=== PATIENT | female | born 1970 | race Caucasian/White ===

== ENCOUNTER 2020-01-01 10:57 | Outpatient (CLI) | payer OTHER, SELFPAY ==
[2020-01-04 00:11] LABS: Alpha-1-Antitrypsin, QN 132 mg/dL (83-199)
== END 2020-01-01 10:58 | disposition home or self-care (01) ==
PROVIDERS: PCP Nurse Practitioner; Visit Provider Nurse Practitioner Family
DX: J44.9 Chronic obstructive pulmonary disease, unspecified (principal); J45.909 Unspecified asthma, uncomplicated
CPT/HCPCS: 36415; 82103; 82104; 82785; 86003

== ENCOUNTER 2020-01-16 09:20 | Outpatient (CLI) | payer OTHER, SELFPAY | END 2020-01-16 09:21 | disposition home or self-care (01) | LOC: ANHAUDIO 09:22 | PROVIDERS: PCP Nurse Practitioner; Visit Provider Nurse Practitioner | DX: H90.3 Sensorineural hearing loss, bilateral (principal) | CPT/HCPCS: 92557; 92567 ==

== ENCOUNTER 2020-02-20 12:26 | Outpatient (CLI) | payer OTHER, SELFPAY ==
--- NOTE | 2020-02-26 09:34 | WPDPFTINT ---
PFT Interpretation PFT Interpretation: This PFT met all criteria for ATS standards and reproducibility FEV/FVC post bronchodilator 73% of predicted FEV1 95% or 2.37 liters FVC 98% or 3.23 ltiers There was good improvement in post bronchodilator FVC by 460 ml and 17% TLC 113% RV 159% RV/TLC 50% DLCO 75% when adjusted for alveolar volume but not adjusted for hemoglobin Flow volume loops showed some expiratory coving Impression: Mild airlfow obstruction with good response to bronchodilators. Air trapping and mildly reduced diffusion capacity. This corresponds with Asthma and or COPD or combination of both. Clinical correlation is advised.
--- NOTE | 2020-02-26 09:38 | WPDSIXMINUTE ---
Six Minute Walk Six Minute Walk: The patients O2 sats started at 97% and dropped as low as 95% Total walk distance 365.76 meters conclusion: This patient does not qualify for home oxygen use
== END 2020-02-20 12:27 | disposition home or self-care (01) ==
LOC: ANHPFT 12:27
PROVIDERS: PCP Nurse Practitioner; Visit Provider Nurse Practitioner Family
DX: J44.9 Chronic obstructive pulmonary disease, unspecified (principal)
CPT/HCPCS: 94060; 94618; 94726; 94729; 95012

== ENCOUNTER 2021-09-03 06:23 | Emergency (ER) | payer OTHER, SELFPAY ==
[2021-09-03] VITALS (17 sets, daily range): BP systolic 116–135; BP diastolic 74–87; PULSE 67–84; RESP 14–31; TEMP 36.8; O2SAT 96–100
[2021-09-03 06:38] LABS: Glucose Point of Care 261 mg/dl (65-105)
[2021-09-03 06:48] LABS: Basophils Percent Auto 0.4 % (0.2-1.2); Eosinophils Absolute Auto 0.1 K/mm3 (0-0.3); Eosinophils Percent Auto 1.5 % (0-4.4); Hematocrit 46.9 % (37.0-47.0); Hemoglobin 15.4 g/dL (12.0-15.0); Immature Granulocyte Absolute 0.02 K/mm3 (0.00-0.031); Immature Granulocyte Percent A 0.2 % (0-0.5); Lymphocytes Absolute Auto 2.84 K/mm3 (0.9-3.2); Lymphocytes Percent Auto 35.3 % (18.3-44.2); Mean Corpuscular HGB Conc 32.8 g/dl (32-36); Mean Corpuscular Volume 97.3 fl (80-100); Mean Platelet Volume 10.3 fl (7.4-10.4); Monocytes Absolute Auto 0.5 K/mm3 (0.1-0.6); Monocytes Percent Auto 5.6 % (2.6-8.5); Neutrophils Absolute Auto 4.6 K/mm3 (1.3-6.7); Platelet Count Result 222 k/mm3 (150-375); Red Blood Count 4.82 M/mm3 (4.2-5.4); Red Cell Distribution Width 12.3 % (11.5-14.5); White Blood Count 8.1 K/mm3 (4.5-10.0)
[2021-09-03 06:57] LABS: Lactic Acid Reflex 2.1 mmol/L (0.7-2.1)
[2021-09-03 06:58] LABS: Alanine Aminotransferase 35 U/L (4-35); Albumin Level 4.5 g/dL (3.5-5.1); Alkaline Phosphatase 102 U/L (38-126); Anion Gap 10 mmol/L (8-16); Aspartate Amino Transferase 30 U/L (14-36); Bilirubin,Total 0.2 mg/dL (0.2-1.3); Blood Urea Nitrogen 7 mg/dL (7-17); Calcium 8.8 mg/dL (8.4-10.2); Carbon Dioxide 22 mmol/L (22-30); Chloride 107 mmol/L (98-107); Estimated CRCL calculation 112 ml/min; Estimated Glomerular Filt Rate > 60; Glucose 259 mg/dL (65-110); Sodium 139 mmol/L (137-145)
--- NOTE | 2021-09-03 07:09 | ED.RECABL ---
HPI - Recheck/Abnormal Lab/Rx General Chief Complaint: Recheck/Abnormal Lab/Rx Stated Complaint: shaking, elevated blood sugar Time Seen by Provider: 09/03/21 07:02 Source: RN notes reviewed History of Present Illness HPI narrative: Patient presents emergency department from home for hyperglycemia. Patient states over the past 2 weeks her blood sugars have been running higher than normal range in the upper 200s over 300 she states normally she runs in the upper 100s to low 200s. Patient states she does have diabetes mellitus is on Metformin 1000 mg twice a day and did take her medication this morning. She states that when her blood sugars get high she feels shaky she also states she is been having increased urination and having intermittent diarrhea. She denies any fevers or chills chest pain shortness of breath abdominal pain nausea vomiting or any other symptoms. States she has been taking her medications as prescribed Related Data Home Medications Medication Instructions Recorded Confirmed acarbose mg 09/03/21 albuterol sulfate INHALATION 09/03/21 aripiprazole mg 09/03/21 ascorbic acid (vitamin C) [Vitamin 09/03/21 C] atorvastatin 09/03/21 bupropion HCl mg PO 09/03/21 clopidogrel 09/03/21 gabapentin 09/03/21 glipizide mg 09/03/21 lisinopril 09/03/21 metformin mg 09/03/21 methenamine hippurate g 09/03/21 montelukast mg 09/03/21 oxybutynin chloride mg PO 09/03/21 pantoprazole PO 09/03/21 topiramate 09/03/21 venlafaxine mg PO 09/03/21 Allergies Allergy/AdvReac Type Severity Reaction Status Date / Time aloe vera Allergy Severe Rash Verified 09/03/21 06:45 aspirin Allergy Severe Anaphylactic Verified 09/03/21 06:45 Shock ibuprofen Allergy Severe Anaphylactic Verified 09/03/21 06:45 Shock Review of Systems Review of Systems: Gen.: Denies fevers or chills ENT: Denies congestion Respiratory: Denies shortness of breath or cough CV: Denies chest pain or palpitations GI: Denies abdominal pain nausea, emesis reports diarrhea ports frequent urination Musculoskeletal: Denies back pain or muscle pain Neuro: Denies numbness, tingling, weakness or focal weakness Skin: Denies rash Endocrine: See HPI Except as documented, all other systems reviewed and negative [facility] Past Medical History Medical History (Updated 09/03/21 @ 09:56 by Giovanni Lazar DO) Anxiety Asthma Chronic fatigue COPD (chronic obstructive pulmonary disease) Depression Diabetes Fibrocystic breast disease (FCBD) Hyperlipemia Hypertension Mixed incontinence urge and stress (male)(female) Mood disorder TIA (transient ischemic attack) Vitamin deficiency Surgical History Surgical History (System 03/23/20 @ 15:53 by Sunni Hickey) Incontinence Family History Family History (System 03/23/20 @ 15:53 by Sunni Hickey) Father Heart disease Hypertension Mother Depression Hypertension High cholesterol Dementia Social History Social History Smoking packs per day: 1 Smoking cigarettes per day: 20.0 Smoking status: Current some day smoker Tobacco type: cigarettes Smoking end date: 05/29/19 Exam Narrative: APPEARANCE: No acute distress, nontoxic, resting in bed EYES: EOMI HEENT: Normocephalic, atraumatic, OMM RESPIRATORY: No respiratory distress Clear to auscultation bilaterally with no rhonchi wheezing or rales. CARDIOVASCULAR: Regular rate and rhythm without murmurs rubs or gallops. ABDOMINAL: Soft, nontender, nondistended, no rebound or guarding MUSCULOSKELETAl: Moves all extremities. No clubbing, cyanosis or edema. NEURO: Awake and alert. Following commands, speech normal, no focal deficits SKIN:: Warm, dry. No rashes lesions or abrasions PSYCHIATRIC: Normal affect/mood, Course Course Emergency Course: Patient's primary care physician Dr. Mullen who manages Metformin with message left x2 Discussed with
[2021-09-03] MEDS: SODIUM CHLORIDE 0.9% IV 1,000 ML 999 ML IV CONT (07:29)
[2021-09-03 08:16] LABS: Add Urine Microscopic? YES; Appearance Urine Cloudy (Clear); Bacteria Urine Trace /hpf; Bilirubin Urine Negative (Negative); Blood Urine Negative (Negative); Color Urine Yellow (Yellow); Glucose Urine UA 3+ mg/dL (Negative); Ketones Urine Trace mg/dL (Negative); Leukocyte Esterase Ur Trace LEU/UL (Negative); Mucus Urine Rare /lpf; Nitrate Urine Negative (Negative); Protein Urine Negative (Negative); RBC Urine 0-2 /hpf (0-2); Specific Grav Ur 1.018 (1.001-1.035); Squamous Epithelial Cell Urine Many /hpf (Few); Urobilinogen Urine Negative mg/dL (<2.0); WBC Urine 0-3 /hpf
[2021-09-03 08:25] LABS: Glucose Point of Care 189 mg/dl (65-105)
[2021-09-03 09:46] LABS: Reflex Lactic Acid Yes or No Add Lactic
== END 2021-09-03 10:30 | disposition home or self-care (01) ==
PROVIDERS: Emergency Medicine; Emergency Provider Emergency Medicine; PCP Nurse Practitioner
DX: E11.65 Type 2 diabetes mellitus with hyperglycemia (principal); J44.9 Chronic obstructive pulmonary disease, unspecified; E78.5 Hyperlipidemia, unspecified; F39 Unspecified mood [affective] disorder; F32.A Depression, unspecified; F41.9 Anxiety disorder, unspecified; E56.9 Vitamin deficiency, unspecified; R53.82 Chronic fatigue, unspecified; N39.46 Mixed incontinence; Z86.73 Personal history of transient ischemic attack (TIA), and cerebral infarction without residual deficits; Z79.84 Long term (current) use of oral hypoglycemic drugs; Z87.891 Personal history of nicotine dependence
CPT/HCPCS: 36415; 80053; 81001; 82948; 83605; 85025; 96360; 96361; 99283; J7030

== ENCOUNTER → 2021-10-22 09:23 | Outpatient (CLI) | payer OTHER, SELFPAY ==
--- NOTE | 2021-11-30 17:43 | WPDSLEEPSTUD ---
Sleep Study Date of Study: 10/22/21 Ordering Provider: ANTONI Koo Interpreting Physician: Monica Collado DO Sleep Study Type: BiPAP Titration Height: 1.63 m Weight: 102.965 kg Body Mass Index: 38.9 Neck Circumference (inches): 16 Reason for Sleep Study Unrefreshing sleep, daytime hypersomnia, multiple nighttime awakenings Sleep History The patient is a 51-year-old female with Hypertension, diabetes, depression, GERD, asthma, anxiety, hx of TIA, glaucoma and IVON on CPAP that had a sleep study ordered for unrefreshing sleep despite being compliant with CPAP. The patient occasionally awakens from sleep short of breath. She frequently awakens at night with heartburn, belching or cough. She constantly snores loud enough that others complain. She frequently has trouble sleeping when she has a cold. He rarely wakes up gasping for air throughout the night. She occasionally has breathing problems at night observed by herself or others. She occasionally sweats excessively at night. She occasionally has heart palpitations or irregular heartbeats during the night. He frequently falls asleep during the day but never while driving. He rarely experiences loss of muscle tone when extremely emotional. She rarely has trouble at school or work due to sleepiness. She rarely feels unable to move 1 waking up or falling asleep. She denies having hypnagogic/ hypnopompic hallucinations. She denies feeling afraid of going to sleep. She rarely has nightmares. She rarely remembers her dreams. She rarely has thoughts racing through her mind. She occasionally feels sad or depressed. She frequently has anxiety. She occasionally has muscular tension. She frequently notices parts of her body jerk. She frequently kicks during the night. She frequently experiences crawling and aching feelings in her legs and occasionally has leg pain during the night. She denies grinding her teeth during sleep but will occasionally awaken with morning jaw pain. She is rarely bothered by pain during the day and rarely awakened by pain during the night. She occasionally wakes up feeling stiff in the morning. She occasionally wakes up with sore achy muscles. She occasionally wakes up with pain in the neck, spine and other joints. She goes to bed between 8-9 p.m. on both weekdays and weekends. It takes her a few minutes to fall asleep. She wakes up 3 times throughout the night for unknown reasons. She is unsure how long it takes her to fall back asleep. She wakes up at 4:30 a.m. on both weekdays and weekends. She typically gets 6-7 hours of sleep per night. She stays in bed for 5-10 minutes after waking up in the morning. She currently lives with her . She does not consume any caffeinated beverages within 2 hours of bedtime. She does not engage in physical exercise before bedtime. She will read and watch television before falling asleep. She will take naps in the afternoon or the evening and they are refreshing. She drinks 10 cups of caffeinated beverage per day. She smokes 1 pack of cigarettes per day. She denies alcohol and recreational drug use. FORMERLY [facility], [facility] Past Medical History Medical History Anxiety Asthma Chronic fatigue COPD (chronic obstructive pulmonary disease) Depression Diabetes Excessive daytime sleepiness Fibrocystic breast disease (FCBD) Hyperlipemia Hypertension Mixed incontinence urge and stress (male)(female) Mood disorder TIA (transient ischemic attack) Vitamin deficiency Surgical History Surgical History Incontinence Family History Family History Father Heart disease Hypertension Mother Depression Hypertension High cholesterol Dementia Social History Social History Smoking pac
[2021-11-30 23:12] VITALS: BMI 38.9
== END ==
PROVIDERS: PCP Nurse Practitioner; Visit Provider Physician Assistant
DX: G47.33 Obstructive sleep apnea (adult) (pediatric) (principal)
CPT/HCPCS: 95811

== ENCOUNTER 2022-10-06 10:39 | Emergency (ER) | payer OTHER, SELFPAY ==
[2022-10-06] VITALS (16 sets, daily range): BP systolic 105–131; BP diastolic 57–89; PULSE 79–100; RESP 16–22; TEMP 36.3–37.1; O2SAT 90–100
[2022-10-06] MEDS: ONDANSETRON INJ 4 MG/2 ML VIAL IV PUSH (14:33)
[2022-10-06] MEDS: SODIUM CHLORIDE 0.9% IV 1,000 ML 999 ML IV CONT (14:33)
[2022-10-06 14:43] LABS: Basophils Percent Auto 0.4 % (0.2-1.2); Eosinophils Absolute Auto 0.2 K/mm3 (0-0.3); Eosinophils Percent Auto 2.1 % (0-4.4); Hematocrit 44.9 % (37.0-47.0); Hemoglobin 14.8 g/dL (12.0-15.0); Immature Granulocyte Absolute 0.02 K/mm3 (0.00-0.031); Immature Granulocyte Percent A 0.2 % (0-0.5); Lymphocytes Percent Auto 36.9 % (18.3-44.2); Mean Corpuscular Hemoglobin 31.3 pg (26-34); Mean Corpuscular Volume 94.9 fl (80-100); Mean Platelet Volume 10.2 fl (7.4-10.4); Monocytes Absolute Auto 0.6 K/mm3 (0.1-0.6); Monocytes Percent Auto 6.6 % (2.6-8.5); Neutrophils Percent Auto 53.8 % (45.5-73.1); Platelet Count Result 245 k/mm3 (150-375); Red Blood Count 4.73 M/mm3 (4.2-5.4); Red Cell Distribution Width 12.7 % (11.5-14.5); White Blood Count 9.2 K/mm3 (4.5-10.0)
[2022-10-06 14:52] LABS: Alanine Aminotransferase 45 U/L (6-35); Albumin Level 4.5 g/dL (3.5-5.1); Alkaline Phosphatase 92 U/L (38-126); Anion Gap 10 mmol/L (8-16); Aspartate Amino Transferase 38 U/L (14-36); Bilirubin,Total 0.4 mg/dL (0.2-1.3); Blood Urea Nitrogen 7 mg/dL (7-17); Calcium 8.9 mg/dL (8.4-10.2); Carbon Dioxide 25 mmol/L (22-30); Chloride 105 mmol/L (98-107); Estimated CRCL calculation 127 ml/min; Estimated Glomerular Filt Rate > 60; Glucose 237 mg/dL (65-110); Lipase 164 U/L (23-300); Sodium 140 mmol/L (137-145)
--- NOTE | 2022-10-06 17:09 | ED.WEAKNESS ---
HPI - Weakness General Chief complaint: Weakness Stated complaint: shakes real bad , weakness Time Seen by Provider: 10/06/22 14:15 History of Present Illness HPI Narrative: Patient is a 52-year-old female who presents ER with nausea and vomiting and diarrhea. Began today. 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 No fevers or chills. No blood in stool or emesis. No alleviating factors at home. Related Data Home Medications Medication Instructions Recorded Confirmed acarbose 25 mg tablet mg 09/03/21 02/01/22 aripiprazole 5 mg tablet mg 09/03/21 02/01/22 ascorbic acid (vitamin C) 500 mg 09/03/21 02/01/22 tablet (Vitamin C) atorvastatin 40 mg tablet 09/03/21 02/01/22 bupropion HCl 150 mg 24 hr tablet, mg PO 09/03/21 02/01/22 extended release clopidogrel 75 mg tablet 09/03/21 02/01/22 gabapentin 600 mg tablet 09/03/21 02/01/22 glipizide 10 mg tablet mg 09/03/21 02/01/22 lisinopril 10 mg tablet 09/03/21 02/01/22 metformin 1,000 mg tablet mg 09/03/21 02/01/22 methenamine hippurate 1 gram tablet g 09/03/21 02/01/22 oxybutynin chloride 10 mg mg PO 09/03/21 02/01/22 tablet,extended release 24 hr pantoprazole 40 mg tablet,delayed PO 09/03/21 02/01/22 release topiramate 25 mg tablet 09/03/21 02/01/22 diazepam 2 mg tablet 2 mg PO QHS PRN 09/15/21 02/01/22 venlafaxine 37.5 mg 37.5 mg PO .24 hrs 09/15/21 02/01/22 capsule,extended release 24 hr Allergies Allergy/AdvReac Type Severity Reaction Status Date / Time aloe vera Allergy Severe Rash Verified 10/06/22 14:14 aspirin Allergy Severe Anaphylactic Verified 10/06/22 14:14 Shock ibuprofen Allergy Severe Anaphylactic Verified 10/06/22 14:14 Shock Review of Systems Review of Systems: All systems reviewed & are unremarkable except as noted in HPI and below Constitutional: Constitutional: Denies chills, Reports fatigue and Denies fever(s) ENT: Denies nasal congestion and Denies sore throat Cardiovascular: Cardiovascular: Denies chest pain and Denies radiating jaw, neck or arm pain Gastrointestinal: Gastrointestinal: Denies abdominal pain, Reports diarrhea, Reports nausea and Reports vomiting Genitourinary: Genitourinary: Denies dysuria, Denies flank pain and Denies urinary incontinence PMFSH Past Medical History Medical History Anxiety Asthma Chronic fatigue COPD (chronic obstructive pulmonary disease) Depression Diabetes Excessive daytime sleepiness Fibrocystic breast disease (FCBD) Hyperlipemia Hypertension Mixed incontinence urge and stress (male)(female) Mood disorder TIA (transient ischemic attack) Vitamin deficiency Surgical History Surgical History Incontinence Family History Family History Father Heart disease Hypertension Mother Depression Hypertension High cholesterol Dementia Social History Social History Smoking packs per day: 1 Smoking cigarettes per day: 20.0 Smoking status: Current every day smoker Tobacco type: cigarettes Exam Narrative: GENERAL: Well-appearing, well-nourished, and in no acute distress. HEAD: Normocephalic, atraumatic. ENT: Mucous membranes moist. NECK: Supple. CHEST: Clear to auscultation. No respiratory distress. HEART: Regular rate and rhythm. Normal peripheral pulses. ABDOMEN: Soft, nontender, nondistended. EXTREMITIES: Normal range of motion. No edema. SKIN: Warm, dry, no rash. NEURO: Alert and oriented x3. PSYCH: Normal mood and affect. Course Course Emergency Course: Patient resting comfortably. Improved after antiemetics and fluid. Discharge home. Vital Signs Vital signs: Vital Signs Temperature 97.3 F L 10/06/22 11:07 Pulse Rate 100 10/06/22 11:07 Respiratory Rate 18 10/06/22 11:0
== END 2022-10-06 17:40 | disposition home or self-care (01) ==
PROVIDERS: Emergency Provider Emergency Medicine; PCP Nurse Practitioner
DX: K52.9 Noninfective gastroenteritis and colitis, unspecified (principal); E11.9 Type 2 diabetes mellitus without complications; I10 Essential (primary) hypertension; F41.9 Anxiety disorder, unspecified; F32.A Depression, unspecified; J44.9 Chronic obstructive pulmonary disease, unspecified; E78.5 Hyperlipidemia, unspecified; Z86.73 Personal history of transient ischemic attack (TIA), and cerebral infarction without residual deficits; F17.210 Nicotine dependence, cigarettes, uncomplicated
CPT/HCPCS: 36415; 80053; 83690; 85025; 96361; 96374; 99284; J2405; J7030

== ENCOUNTER 2023-05-11 10:35 | Emergency (ER) | payer OTHER, SELFPAY ==
--- NOTE | 2023-05-11 10:48 | ED.SKABFB ---
HPI - Skin/Abscess/Foreign Bdy General Chief complaint: Skin/Abscess/Foreign Body Stated complaint: Itching Source: patient Mode of arrival: ambulatory Limitations: no limitations History of Present Illness HPI narrative: 52 y/o female presented for c/o itching to skin all over body since 0600. She states she started with itching for 2 weeks just on her neck. She attributed that to taking mucinex. However she has not been taking that medication for over one week. Denies lip, tongue, or throat swelling, shortness of breath or wheezing. Denies changes to soap, detergent, lotion, or any other exposures. No one else in the house or any contacts with similar symptoms. Took Benadryl this morning. Related Data Home Medications Medication Instructions Recorded Confirmed acarbose 25 mg tablet 50 mg PO BID 09/03/21 05/11/23 aripiprazole 5 mg tablet 5 mg PO DAILY 09/03/21 05/11/23 ascorbic acid (vitamin C) 500 mg 500 mg PO BID PRN Anxiety 09/03/21 05/11/23 tablet (Vitamin C) atorvastatin 40 mg tablet 40 mg PO DAILY 09/03/21 05/11/23 bupropion HCl 150 mg 24 hr tablet, 150 mg PO BID 09/03/21 05/11/23 extended release clopidogrel 75 mg tablet 75 mg PO DAILY 09/03/21 05/11/23 gabapentin 600 mg tablet 800 mg PO TID 09/03/21 05/11/23 glipizide 10 mg tablet 10 mg PO BID 09/03/21 05/11/23 lisinopril 10 mg tablet 10 mg PO DAILY 09/03/21 05/11/23 metformin 1,000 mg tablet 1,000 mg PO BID 09/03/21 05/11/23 methenamine hippurate 1 gram tablet 1 g PO BID 09/03/21 05/11/23 oxybutynin chloride 10 mg 10 mg PO DAILY 09/03/21 05/11/23 tablet,extended release 24 hr pantoprazole 40 mg tablet,delayed 40 mg PO DAILY 09/03/21 05/11/23 release topiramate 25 mg tablet 25 mg PO DAILY 09/03/21 05/11/23 diazepam 2 mg tablet 2 mg PO QHS PRN breathing 09/15/21 05/11/23 cetirizine 10 mg tablet mg 05/11/23 dulaglutide 3 mg/0.5 mL mg subcut 05/11/23 subcutaneous pen injector (Trulicity) famotidine 20 mg tablet mg 05/11/23 fluticasone propionate 50 2 spray intranasal BID 05/11/23 05/11/23 mcg/actuation nasal spray,suspension (Flonase Allergy Relief) sitagliptin phosphate 100 mg mg 05/11/23 tablet (Januvia) tizanidine 4 mg tablet mg 05/11/23 venlafaxine 150 mg mg PO 05/11/23 capsule,extended release 24 hr Allergies Allergy/AdvReac Type Severity Reaction Status Date / Time aloe vera Allergy Severe Rash Verified 05/11/23 10:41 aspirin Allergy Severe Anaphylactic Verified 05/11/23 10:41 Shock ibuprofen Allergy Severe Anaphylactic Verified 05/11/23 10:41 Shock Review of Systems Review of Systems: CONSTITUTIONAL: Denies body aches, fever, chills, or sweats. EYES: Denies visual changes, redness, or discharge. ENT: Denies rhinorrhea, congestion, throat or lip swelling CARDIOVASCULAR: Denies chest pain, palpitations, or edema. RESPIRATORY: Denies cough or dyspnea. GASTROINTESTINAL: Denies abdominal pain, nausea, vomiting, or diarrhea. SKIN: reports itchy skin MUSCULOSKELETAL: Denies back pain, joint pain, or myalgia. NEUROLOGIC: Denies headache, numbness, tingling, or weakness. FORMERLY [facility] Past Medical History Medical History Anxiety Asthma Chronic fatigue COPD (chronic obstructive pulmonary disease) Depression Diabetes Excessive daytime sleepiness Fibrocystic breast disease (FCBD) Hyperlipemia Hypertension Mixed incontinence urge and stress (male)(female) Mood disorder TIA (transient ischemic attack) Vitamin deficiency Surgical History Surgical History Incontinence Family History Family History Father Heart disease Hypertension Mother Depression Hypertension High cholesterol Dementia Social History Social History Smoking packs per day: 1 Smoking cigarettes per day: 20.0
[2023-05-11 10:49] VITALS: BP 127/86; PULSE 91; RESP 16; TEMP 36.3; O2SAT 99
[2023-05-11 11:06] VITALS: BP 127/86; PULSE 91; RESP 16; TEMP 36.3; O2SAT 99
== END 2023-05-11 11:03 | disposition home or self-care (01) ==
PROVIDERS: Emergency Provider Nurse Practitioner Family; PCP Nurse Practitioner
DX: L29.9 Pruritus, unspecified (principal); J44.9 Chronic obstructive pulmonary disease, unspecified; E78.5 Hyperlipidemia, unspecified; E11.9 Type 2 diabetes mellitus without complications; I10 Essential (primary) hypertension; F17.210 Nicotine dependence, cigarettes, uncomplicated; Z86.73 Personal history of transient ischemic attack (TIA), and cerebral infarction without residual deficits
CPT/HCPCS: 99213; G0463

== ENCOUNTER 2023-05-18 15:38 | Emergency (ER) | payer OTHER, SELFPAY ==
--- NOTE | ~2023-05-18 | XR_ITS ---
EXAMINATION: XR chest 2V Exam Date/Time: 05/18/2023 18:20 [employer] HISTORY: cough, rule out pneumonia Comparison: None. RESULT: Lines, tubes, and devices: None. Lungs and pleura: Clear. Cardiomediastinal silhouette: Unremarkable. Other: No acute osseous or upper abdominal finding. IMPRESSION: No acute cardiopulmonary process. Reviewed, dictated and finalized at location K. [facility] SPR[facility]ER
[2023-05-18 15:52] VITALS: BP 107/72; PULSE 91; RESP 16; TEMP 36.6; O2SAT 95
[2023-05-18 18:06] VITALS: RESP 16; O2SAT 100
[2023-05-18 18:13] LABS: Glucose Point of Care 340 mg/dl (65-105)
--- NOTE | 2023-05-18 18:17 | ED.GENADULT ---
HPI - General Adult General Chief complaint: Recheck/Abnormal Lab/Rx Stated complaint: elevated blood glucose Time Seen by Provider: 05/18/23 18:03 Source: patient Mode of arrival: ambulatory Limitations: no limitations History of Present Illness HPI narrative: This is a 52-year-old female with PMH of DM type 2, COPD, GERD who presents to the ED with chief complaint of high blood sugars over the past 5 days. Reports that last week she was given a prescription for prednisone after having an allergic reaction and feels that this may increased her sugars. However now she states that despite taking her normal diabetic medications and being off the steroids for several days she is still having sugars in the upper 300s and lower 400s. She has been checking on her glucometer. Symptomatically reports fatigue and intermittent cough over the last week or so. Reports she has urinary incontinence at baseline but no other urinary symptoms currently. Denies fevers, chills, abdominal pain, vomiting, nausea, chest pain, shortness of breath, headache, neck pain. Her diabetic regimen is metformin, glipizide, Trulicity, Januvia, acarbose. Reports that she was recently referred to an drying frame operator but has been unable to make an appointment. States last A1c was in the low 10% range. Related Data Home Medications Medication Instructions Recorded Confirmed acarbose 25 mg tablet 50 mg PO BID 09/03/21 05/11/23 aripiprazole 5 mg tablet 5 mg PO DAILY 09/03/21 05/11/23 ascorbic acid (vitamin C) 500 mg 500 mg PO BID PRN Anxiety 09/03/21 05/11/23 tablet (Vitamin C) atorvastatin 40 mg tablet 40 mg PO DAILY 09/03/21 05/11/23 bupropion HCl 150 mg 24 hr tablet, 150 mg PO BID 09/03/21 05/11/23 extended release clopidogrel 75 mg tablet 75 mg PO DAILY 09/03/21 05/11/23 gabapentin 600 mg tablet 800 mg PO TID 09/03/21 05/11/23 glipizide 10 mg tablet 10 mg PO BID 09/03/21 05/11/23 lisinopril 10 mg tablet 10 mg PO DAILY 09/03/21 05/11/23 metformin 1,000 mg tablet 1,000 mg PO BID 09/03/21 05/11/23 methenamine hippurate 1 gram tablet 1 g PO BID 09/03/21 05/11/23 oxybutynin chloride 10 mg 10 mg PO DAILY 09/03/21 05/11/23 tablet,extended release 24 hr pantoprazole 40 mg tablet,delayed 40 mg PO DAILY 09/03/21 05/11/23 release topiramate 25 mg tablet 25 mg PO DAILY 09/03/21 05/11/23 diazepam 2 mg tablet 2 mg PO QHS PRN breathing 09/15/21 05/11/23 cetirizine 10 mg tablet 10 mg PO DAILY 05/11/23 05/11/23 dulaglutide 3 mg/0.5 mL 3 mg subcut WEEKLY 05/11/23 05/11/23 subcutaneous pen injector (Trulicity) famotidine 20 mg tablet 20 mg PO DAILY 05/11/23 05/11/23 fluticasone propionate 50 2 spray intranasal BID 05/11/23 05/11/23 mcg/actuation nasal spray,suspension (Flonase Allergy Relief) sitagliptin phosphate 100 mg 100 mg PO DAILY 05/11/23 05/11/23 tablet (Januvia) tizanidine 4 mg tablet 4 mg PO TID PRN muscle relaxer 05/11/23 05/11/23 venlafaxine 150 mg 150 mg PO DAILY 05/11/23 05/11/23 capsule,extended release 24 hr Allergies Allergy/AdvReac Type Severity Reaction Status Date / Time aloe vera Allergy Severe Rash Verified 05/11/23 10:41 aspirin Allergy Severe Anaphylactic Verified 05/11/23 10:41 Shock ibuprofen Allergy Severe Anaphylactic Verified 05/11/23 10:41 Shock Review of Systems Review of Systems: All systems as dictated in [facility] Past Medical History Medical History Anxiety Asthma Chronic fatigue COPD (chronic obstructive pulmonary disease) Depression Diabetes Excessive daytime sleepiness Fibrocystic breast disease (FCBD) Hyperlipemia Hypertension Mixed incontinence urge and stress (male)(female) Mood disorder TIA (transient ischemic attack) Vitamin deficiency Surgical History Surgical History Incontinence Family History Family History
[2023-05-18] MEDS: SODIUM CHLORIDE 0.9% IV 1,000 ML 999 ML IV CONT ×2 (18:44)
--- NOTE | 2023-05-18 18:44 | PC.NURSE ---
pt unable to provide urine sample at this time. pt declining straight cath. pt will attempt after IV fluids.
[2023-05-18 18:47] LABS: Basophils Percent Auto 0.4 % (0.2-1.2); Eosinophils Absolute Auto 0.2 K/mm3 (0-0.3); Eosinophils Percent Auto 2.1 % (0-4.4); Hematocrit 45.7 % (37.0-47.0); Hemoglobin 14.8 g/dL (12.0-15.0); Immature Granulocyte Absolute 0.03 K/mm3 (0.00-0.031); Immature Granulocyte Percent A 0.3 % (0-0.5); Lymphocytes Absolute Auto 4.15 K/mm3 (0.9-3.2); Lymphocytes Percent Auto 41.6 % (18.3-44.2); Mean Corpuscular HGB Conc 32.4 g/dl (32-36); Mean Corpuscular Volume 95.8 fl (80-100); Mean Platelet Volume 10.1 fl (7.4-10.4); Monocytes Absolute Auto 0.6 K/mm3 (0.1-0.6); Monocytes Percent Auto 5.7 % (2.6-8.5); Neutrophils Percent Auto 49.9 % (45.5-73.1); Platelet Count Result 241 k/mm3 (150-375); Red Blood Count 4.77 M/mm3 (4.2-5.4); Red Cell Distribution Width 12.4 % (11.5-14.5)
[2023-05-18 18:57] LABS: Alanine Aminotransferase 47 U/L (6-35); Albumin Level 4.4 g/dL (3.5-5.1); Alkaline Phosphatase 113 U/L (38-126); Anion Gap 9 mmol/L (8-16); Aspartate Amino Transferase 37 U/L (14-36); Bilirubin,Total 0.3 mg/dL (0.2-1.3); Blood Urea Nitrogen 13 mg/dL (7-17); Calcium 9.7 mg/dL (8.4-10.2); Carbon Dioxide 26 mmol/L (22-30); Chloride 101 mmol/L (98-107); Estimated CRCL calculation 107 ml/min; Estimated Glomerular Filt Rate > 60; Glucose 315 mg/dL (65-110); Potassium 4.1 mmol/L (3.4-5.0); Sodium 136 mmol/L (137-145)
[2023-05-18 19:18] LABS: Influenza A QL RT-PCR Negative (Negative); Influenza B QL RT-PCR Negative (Negative); RSV RNA, RT-PCR Negative (Negative); SARS-CoV-2 RNA PCR Negative (Negative)
[2023-05-18 20:19] LABS: Appearance Urine Clear (Clear); Bilirubin Urine Negative (Negative); Blood Urine Negative (Negative); Color Urine Yellow (Yellow); Glucose Urine UA 3+ mg/dL (Negative); Ketones Urine Trace mg/dL (Negative); Leukocyte Esterase Ur Negative LEU/UL (Negative); Nitrate Urine Negative (Negative); Protein Urine Negative (Negative); Specific Grav Ur 1.035 (1.001-1.035); Urobilinogen Urine 0.2 mg/dL (<2.0); pH Urine 6.5 (5.0-9.0)
[2023-05-18 20:25] LABS: Add Urine Microscopic? NO
[2023-05-18 21:02] LABS: Glucose Point of Care 294 mg/dl (65-105)
[2023-05-18] MEDS: SODIUM CHLORIDE 0.9% IV 500 ML 999 ML IV CONT (21:14)
[2023-05-18] MEDS: INSULIN HUMAN REGULAR (*BKC) 100 UNITS/ML 6 UNITS IV PUSH (21:14)
[2023-05-18 21:56] VITALS: BP 119/68; PULSE 88; RESP 21; O2SAT 93
[2023-05-18 22:29] LABS: Glucose Point of Care 276 mg/dl (65-105)
[2023-05-18 22:48] VITALS: BP 151/91; PULSE 79; RESP 22; TEMP 36.4; O2SAT 98
== END 2023-05-18 22:50 | disposition home or self-care (01) ==
PROVIDERS: Emergency Provider Physician Assistant; PCP Nurse Practitioner
DX: E11.65 Type 2 diabetes mellitus with hyperglycemia (principal); Z20.822 Contact with and (suspected) exposure to COVID-19; J44.9 Chronic obstructive pulmonary disease, unspecified; I10 Essential (primary) hypertension; N39.46 Mixed incontinence; K21.9 Gastro-esophageal reflux disease without esophagitis; R53.82 Chronic fatigue, unspecified; F32.A Depression, unspecified; F41.9 Anxiety disorder, unspecified; F17.210 Nicotine dependence, cigarettes, uncomplicated; Z86.73 Personal history of transient ischemic attack (TIA), and cerebral infarction without residual deficits; Z79.85 Long-term (current) use of injectable non-insulin antidiabetic drugs; Z79.84 Long term (current) use of oral hypoglycemic drugs
CPT/HCPCS: 36415; 71046; 80053; 81003; 82948; 85025; 87637; 96361; 96374; 99284; J1815; J7030; J7040

== ENCOUNTER 2023-06-15 07:44 | Outpatient (CLI) | payer OTHER, SELFPAY ==
--- NOTE | ~2023-06-15 | CT_ITS ---
EXAMINATION:CT lung screening DATE: 06/15/2023 10:20 INDICATION: Personal history of nicotine dependence. Current smoker with 30 pack year history. TECHNIQUE: Computed tomography (CT) of the chest was performed without intravenous contrast. Automate d exposure control and iterative reconstruction technique were employed. The dose-length product (DLP ) was 203.96 mGy-cm. COMPARISON: None. FINDINGS: The lungs demonstrate mild atelectasis. There are a few scattered nodules in the lungs kasia uring up to 3 mm in right lower lobe. No pleural effusion. The heart size is normal. No pericardial e ffusion. There is moderate thoracic spondylosis. IMPRESSION: 1. Lung-RADS category 2: Benign appearance or behavior. Continue annual screening with noncontrast lo w-dose chest CT in 12 months. Reviewed, dictated and finalized at location E. [employer] IMPRESSION: 1. Lung-RADS category 2: Benign appearance or behavior. Continue annual screeni ng with noncontrast low-dose chest CT in 12 months.
--- NOTE | 2023-06-16 11:25 | P.PCNPFT_ITS ---
PFT Procedure Performed PFT Procedure Performed Spirometry with Pre/Post Bronchodilator Plethysmography (Lung Vol) Diffusing Cap (DLCO) Flow Vol Loop PFT Interpretation The patient's lung volumes were evaluated using the body plethysmography method, and the results were unremarkable. Spirometry demonstrated normal expiratory flow rates and a standard FEV1 to FVC ratio of 76%. After the administration of a bronchodilator, there was a notable increase in expiratory flow rates. The patient's lung diffusion capacity is within normal limits at 98% predicted. When compared to the previous study conducted in January 2020, both post- bronchodilator FEV1 and FVC have increased by approximately 0.4 L each. Impression: Spirometry, lung volumes, and lung diffusion capacity all within the normal range.
--- NOTE | 2023-06-16 11:32 | WPDSIXMINUTE ---
Six Minute Walk Procedure Procedure Performed Pulmonary Stress Test (6 min walk) Six Minute Walk Six Minute Walk: This 6 minute walk test was carried out with the patient breathing ambient air. The pre walk baseline oxyhemoglobin saturation was 93%. The patient ambulated 274 m with no stops during testing. During the walk the oxyhemoglobin saturation remained in the range of 92% to 96%. Impression: No evidence of oxyhemoglobin desaturation on this testing..
== END 2023-06-15 07:45 | disposition home or self-care (01) ==
LOC: ANHPFT 07:45
PROVIDERS: PCP Nurse Practitioner; Visit Provider Physician Assistant
DX: Z12.2 Encounter for screening for malignant neoplasm of respiratory organs (principal); J44.9 Chronic obstructive pulmonary disease, unspecified; Z87.891 Personal history of nicotine dependence
CPT/HCPCS: 71271; 94060; 94618; 94726; 94729

== ENCOUNTER 2024-02-19 14:43 | Outpatient (CLI) | payer BC, SELFPAY ==
--- NOTE | 2024-02-19 14:47 | ECHO_ITS ---
Patient Info Name: Charito Jacobson Age: 53 years : 1970 Gender: Female Ht: 64 in Wt: 230 lbs BSA: 2.22 m2 HR: 81 bpm BP: 128 / 78 mmHg Heart Rhythm: Sinus Rhythm Technical Quality: Good Exam Date: 02/19/2024 3:03 PM Exam Location: Echo Lab Patient Status: Outpatient Admit Date: 02/19/2024 Staff Ordering Physician: Frances Malone PA-C Scale Reclamation Tender: Cathryn Corrigan RDCS Attending Provider: Frances Malone PA-C Exam Type: CA echo doppler color flow Study Info Indications R06.09 - Other forms of dyspnea Complete two-dimensional, color flow and Doppler transthoracic echocardiogram is performed. Summary 1. Complete two-dimensional, color flow and Doppler transthoracic echocardiogram is performed. 2. Left ventricular chamber dimension is normal. 3. Left ventricular systolic function is normal, estimated at 60-65%. 4. The left ventricular diastolic function is grade I diastolic dysfunction. 5. E/e' 10 is mildly elevated. 6. There is trace mitral valve regurgitation. 7. No pulmonary hypertension, estimated pulmonary arterial systolic pressure is 27 mmHg. Left Ventricle E/e' 10 is mildly elevated. Left ventricular chamber dimension is normal. Left ventricular systolic function is normal, estimated at 60-65%. The left ventricular diastolic function is grade I diastolic dysfunction. Right Ventricle Right ventricular systolic function is normal and with normal TAPSE 2.3 cm. Right ventricular chamber dimension is normal. Left Atria Left atrial chamber dimension is normal. Right Atria Right atrial chamber dimension is normal. Aortic Valve The aortic valve is trileaflet. There is no aortic valve stenosis. There is no aortic valve regurgitation. Pulmonic Valve There is no pulmonic regurgitation. Mitral Valve There is no mitral valve stenosis. There is trace mitral valve regurgitation. Tricuspid Valve There is no tricuspid valve regurgitation. No pulmonary hypertension, estimated pulmonary arterial systolic pressure is 27 mmHg. Pericardium/Pleural There is no pericardial effusion. Inferior Vena Cava Normal inferior vena cava with >50% collapse upon inspiration consistent with normal right atrial pressure, 5 mmHg. Aorta The aortic root size at the sinus of Valsalva is normal. Left Ventricular Outflow Tract Name Value Normal LVOT 2D LVOT Diameter 2.0 cm LVOT Doppler LVOT Peak Gradient 6 mmHg LVOT Mean Gradient 2 mmHg LVOT VTI 20 cm LVOT VTI/AV VTI Ratio 0.8 LVOT Stroke Volume 67 ml LVOT CO 5.0 l/min LVOT CI 2.3 l/min/m2 Pulmonic Valve Name Value Normal RVOT Doppler RVOT Peak Gradient 2 mmHg PV Doppler P
== END 2024-02-19 14:44 | disposition home or self-care (01) ==
LOC: ANHCARD 14:44
PROVIDERS: PCP Nurse Practitioner; Visit Provider Physician Assistant
DX: R06.09 Other forms of dyspnea (principal); I50.30 Unspecified diastolic (congestive) heart failure
CPT/HCPCS: 93306

== ENCOUNTER 2024-04-30 13:21 | Emergency (ER) | payer BC, SELFPAY ==
[2024-04-30 13:32] VITALS: BP 131/82; PULSE 90; RESP 16; TEMP 36.3; O2SAT 96
[2024-04-30 13:39] VITALS: BP 121/82; PULSE 82; RESP 16; TEMP 36.9; O2SAT 97
[2024-04-30 14:25] VITALS: BP 126/79; PULSE 74; RESP 16; TEMP 36.6; O2SAT 100
--- NOTE | 2024-04-30 14:45 | ED.NECK ---
HPI - Neck Pain/Injury General Chief Complaint: Neck Pain/Injury Stated Complaint: neck pain Time Seen by Provider: 04/30/24 13:39 History of Present Illness HPI Narrative: 53-year-old female presenting with neck pain. States that she has had a lot of right-sided neck pain for the last several weeks. She initially thought that it was related to her pillow so she has changed pillows several times. She saw her PCP last week who prescribed muscle relaxers which do help temporarily but then the pain comes back. No recent injuries. No numbness or weakness. States that she has had similar neck pain in the past but it has never lasted this long. She is allergic to NSAIDs and is only able to take Tylenol. Related Data Home Medications Medication Instructions Recorded Confirmed aripiprazole 5 mg tablet 5 mg PO DAILY 09/03/21 01/30/24 ascorbic acid (vitamin C) 500 mg 500 mg PO BID PRN Anxiety 09/03/21 01/30/24 tablet (Vitamin C) atorvastatin 40 mg tablet 40 mg PO DAILY 09/03/21 01/30/24 bupropion HCl 150 mg 24 hr tablet, 150 mg PO BID 09/03/21 01/30/24 extended release clopidogrel 75 mg tablet 75 mg PO DAILY 09/03/21 01/30/24 gabapentin 600 mg tablet 800 mg PO TID 09/03/21 01/30/24 lisinopril 10 mg tablet 10 mg PO DAILY 09/03/21 01/30/24 metformin 1,000 mg tablet 1,000 mg PO BID 09/03/21 01/30/24 oxybutynin chloride 10 mg 10 mg PO DAILY 09/03/21 01/30/24 tablet,extended release 24 hr pantoprazole 40 mg tablet,delayed 40 mg PO DAILY 09/03/21 01/30/24 release topiramate 25 mg tablet 25 mg PO DAILY 09/03/21 01/30/24 cetirizine 10 mg tablet 10 mg PO DAILY 05/11/23 01/30/24 famotidine 20 mg tablet 20 mg PO DAILY 05/11/23 01/30/24 venlafaxine 150 mg 150 mg PO DAILY 05/11/23 01/30/24 capsule,extended release 24 hr diazepam 2 mg tablet 5 mg PO QHS PRN breathing 06/09/23 01/30/24 semaglutide 2 mg/dose (8 mg/3 mL) 2 mg subcut WEEKLY 01/30/24 01/30/24 subcutaneous pen injector (Ozempic) Allergies Allergy/AdvReac Type Severity Reaction Status Date / Time aloe vera Allergy Severe Rash Verified 04/30/24 13:29 aspirin Allergy Severe Anaphylactic Verified 04/30/24 13:29 Shock ibuprofen Allergy Severe Anaphylactic Verified 04/30/24 13:29 Shock Review of Systems Review of Systems: All systems reviewed & are unremarkable except as noted in HPI and below PMFSH Past Medical History Medical History Anxiety Asthma Chronic fatigue COPD (chronic obstructive pulmonary disease) Depression Diabetes Excessive daytime sleepiness Fibrocystic breast disease (FCBD) Hyperlipemia Hypertension Mixed incontinence urge and stress (male)(female) Mood disorder TIA (transient ischemic attack) Vitamin deficiency Surgical History Surgical History Incontinence Family History Family History Father Heart disease Hypertension Mother Depression Hypertension High cholesterol Dementia Social History Social History Smoking packs per day: 1 Smoking cigarettes per day: 20.0 Smoking status: Current every day smoker Tobacco type: cigarettes Exam Narrative: GENERAL: Well-appearing, No acute distress, pleasant cooperative HEAD: Normocephalic, atraumatic. EYES: PERRLA and EOMI. ENT: grossly unremarkable NECK: Supple. no midline tenderness, significant tenderness along the right side of her neck extending in the right trap CHEST: No respiratory distress. HEART: Regular rate and rhythm EXTREMITIES: Normal range of motion. No edema. SKIN: Warm, dry, no rash. NEURO: No focal deficits. Alert and oriented x3. PSYCH: Normal mood and affect. Course Vital Signs Vital signs: Vital Signs Temperature 97.4 F L 04/30/24 13:32 Pulse Rate 90 04/30/24 13:32 Respiratory Rate 16 04/30/24 13:32 Blood Pressure 131/82 04/30/24 13:32 Pulse Oximetry 96 04/30/24 13:32 Temperature 98.1 F 04/30/24 16:04 Pulse Rate 77 04/30/24 16:04 Respiratory Rate 16 04/30/24 16:04 Blood Pressure 123/75 04/30/24 16:04 Pulse Oximetry 96 04/30/24 16:04 Procedures Other Procedure Procedure 1: Other Procedure: trigger point injections to R upper trapezius and middle trapezius with lidocaine 1% w/o epi. Tolerated without complication with improvement in her pain. MDM - Neck Pain/Injury MDM Narrative Medical decision making narrative: 53-year-old female presenting with neck pain for several weeks. Exam remarkable for the above. Vitals stable. Her exam is consistent with muscular spasms and pain. She is very tender in her upper right trapezius extending into the mid region of the trapezius. There is nothing midline, she denies any neurologic symptoms. She is allergic to NSAIDs and is already been taking tizanidine. She already takes Valium q.h.s. for anxiety and states that this has not helped. we are really rather limited with our pain control options at this point. Would like to avoid narcotics. Discussed with the patient trigger point injections with lidocaine, she is agreeable this plan. Performed without complication. Re-evaluation of patient reports improvement in her pain. She is able to move her head with less difficulty and pain. Feel she is safe for outpatient management. Advised that she continue taking her muscle relaxers as prescribed by her PCP. Discussed getting a tens unit and following up closely with her PCP. She may benefit from some physical therapy. Appropriate return precautions given. She is agreeable this plan. Discharged in stable condition. Differential Diagnosis Differential diagnosis: Likely torticollis, strain of neck muscle and other (muscle spasm) Medical Records Attestation: I reviewed the patient's medical records. Lab Data Attestation: I reviewed the patient's lab results. Critical Care Time Critical Care Time Critical Care Time: No Discharge Plan Discharge Clinical Impression: Strain of neck muscle Patient Disposition: Home, Self-Care Condition: Stable Instructions: Antibiotic Form, Cervical Strain (ED) Additional Instructions: Please continue taking the muscle relaxers as prescribed. You may purchase a tens unit [id number] to also help with your pain. Follow-up closely with your PCP. If your symptoms worsen or other concerning symptoms arise, please return to the ER. Prescriptions: No Action cetirizine 10 mg tablet 10 mg PO DAILY venlafaxine 150 mg capsule,extended release 24hr 150 mg PO DAILY famotidine 20 mg tablet 20 mg PO DAILY Ozempic 2 mg/dose (8 mg/3 mL) pen injector 2 mg subcut WEEKLY diazepam 2 mg tablet 5 mg PO QHS PRN (Reason: breathing) atorvastatin 40 mg tablet 40 mg PO DAILY gabapentin 600 mg tablet 800 mg PO TID oxybutynin chloride 10 mg tablet extended release 24 hr 10 mg PO DAILY topiramate 25 mg tablet 25 mg PO DAILY clopidogrel 75 mg tablet 75 mg PO DAILY ascorbic acid (vitamin C) [Vitamin C] 500 mg tablet 500 mg PO BID PRN (Reason: Anxiety) pantoprazole 40 mg tablet,delayed release (DR/EC) 40 mg PO DAILY metformin 1,000 mg tablet 1,000 mg PO BID lisinopril 10 mg tablet 10 mg PO DAILY aripiprazole 5 mg tablet 5 mg PO DAILY bupropion HCl 150 mg tablet extended release 24 hr 150 mg PO BID montelukast 10 mg tablet 10 mg PO DAILY Qty: 30 5RF fluticasone propionate [Flonase Allergy Relief] 50 mcg/actuation spray,suspension 1 spray intranasal BID Qty: 16 3RF Rx Instructions: administer into each nostril tiotropium bromide [Spiriva with HandiHaler] 18 mcg capsule, w/inhalation device 1 cap inhalation DAILY 30 Days Qty: 30 5RF Rx Instructions: puncture 1 cap using device; one cap = 2 inhalations albuterol sulfate 90 mcg/actuation HFA aerosol inhaler See Rx Instructions .ROUTE .COMPLEX Qty: 8.5 3RF Dose Instruction: INHALE 1-2 PUFFS BY MOUTH EVERY 4-6 HOURS NEEDED FOR SHORTNESS OF BREATH OR WHEEZING Rx Instructions: INHALE 1-2 PUFFS BY MOUTH EVERY 4-6 HOURS NEEDED FOR SHORTNESS OF BREATH OR WHEEZING albuterol sulfate 2.5 mg /3 mL (0.083 %) solution for nebulization 2.5 mg inhalation Q4-6H PRN (Reason: shortness of breath or wheezing) Qty: 180 3RF Dulera 100-5 mcg/actuation HFA aerosol inhaler 2 puff inhalation Q12H Qty: 13 5RF Rx Instructions: Rinse mouth and spit after each use Follow-up/Referrals: Sebas,Antoine Pillai APRN [Primary Care Provider] -
[2024-04-30 15:05] VITALS: BP 116/74; PULSE 80; RESP 16; TEMP 36.8; O2SAT 98
[2024-04-30 16:04] VITALS: BP 123/75; PULSE 77; RESP 16; TEMP 36.7; O2SAT 96
== END 2024-04-30 16:16 | disposition home or self-care (01) ==
PROVIDERS: Emergency Provider Emergency Medicine; PCP Nurse Practitioner
DX: S16.1XXA Strain of muscle, fascia and tendon at neck level, initial encounter (principal); F41.9 Anxiety disorder, unspecified; J45.909 Unspecified asthma, uncomplicated; J44.9 Chronic obstructive pulmonary disease, unspecified; E11.9 Type 2 diabetes mellitus without complications; E78.5 Hyperlipidemia, unspecified; I10 Essential (primary) hypertension; Z79.84 Long term (current) use of oral hypoglycemic drugs; X58.XXXA Exposure to other specified factors, initial encounter
CPT/HCPCS: 20552; 99283; J2003